=== PATIENT | female | born 1985 | race Caucasian/White ===

== ENCOUNTER 2024-04-04 11:31 | Inpatient (IN) | payer OTHER ==
[2024-04-04] MEDS: morphine CARPU-JECT 4 MG/1 ML DISP.SYRIN IVPUSH ONE (12:35)
[2024-04-04] MEDS: ONDANSETRON 4 MG/2 ML VIAL IVPUSH ONE (12:35)
[2024-04-04 12:41] LABS: BASO % 0.3 % (0-2.0); EOS % 2.6 % (0-4.5); HEMATOCRIT 40.9 % (32.4-45.2); LYMPH % 12.3 % (8-40); MCH 30.1 pg (25.7-33.7); MCHC 34.1 g/dl (32.0-36.0); MEAN CELL VOLUME 88.2 fl (80-96); MEAN PLT VOLUME 7.5 fl (7.5-11.1); MONO % 9.2 % (3.8-10.2); NEUT % 75.6 % (42.8-82.8); PLATELET COUNT 372 10^3/uL (134-434); RBC 4.63 M/mm3 (3.60-5.2); RDW 13.2 % (11.6-15.6); WHITE BLOOD COUNT 18.6 K/mm3 (4.0-10.0)
[2024-04-04] MEDS ORDERED: ONDANSETRON 4 MG/2 ML VIAL ONE (12:45)
[2024-04-04] MEDS ORDERED: morphine SULFATE 4 MG/ML VIAL ONE (12:45)
[2024-04-04 12:48] LABS: INR 1.15 (0.83-1.09); PROTHROMBIN TIME (PATIENT) 13.2 SEC (9.7-13.0)
[2024-04-04 12:49] LABS: POTASSIUM 4.4 mmol/L (3.5-5.1)
[2024-04-04 12:49] LABS: EPI CELLS >36 /uL (0-25.1); HCG,QUALITATIVE URINE Negative; HYALINE CASTS 4 /uL (0-3.1); PH,URINE 5.5 (5.0-8.0); URINE APPEARANCE TURBID; URINE BACTERIA 1863 /uL (0-1359); URINE BILIRUBIN 2+ (NEGATIVE); URINE COLOR RED; URINE GLUCOSE (UA) NEGATIVE (NEGATIVE); URINE KETONE 3+ (NEGATIVE); URINE LEUK ESTERASE 2+ (NEGATIVE); URINE NITRITE POSITIVE (NEGATIVE); URINE PROTEIN 3+ (NEGATIVE); URINE RBC 9643 /uL (0-23.9); URINE WBC 443 /uL (0-25.8)
[2024-04-04 12:51] LABS: CALCIUM 9.4 mg/dL (8.5-10.1)
[2024-04-04 12:55] LABS: CREATININE 0.5 mg/dL (0.55-1.3)
[2024-04-04] MEDS: CEFTRIAXONE 1,000 MG in DEXTROSE 5%-WATER - 50 ML IVPB ONE (12:55)
[2024-04-04 12:56] LABS: BILIRUBIN,TOTAL 0.7 mg/dL (0.2-1); TOT PROT 7.9 g/dl (6.4-8.2)
[2024-04-04] MEDS ORDERED: CEFTRIAXONE 1 GM/50 ML BAG ONE (13:09)
[2024-04-04] MEDS ORDERED: ACETAMINOPHEN INJECTION 100 ML ONE (14:10)
[2024-04-04] MEDS: ACETAMINOPHEN 1000 MG/100 ML BAG IVPB ONE (14:17)
[2024-04-04] MEDS ORDERED: fentaNYL CITRATE 250 MCG/5 ML VIAL ONE (16:25)
[2024-04-04] MEDS: fentaNYL CITRATE 250 MCG/5 ML VIAL IVPUSH ONE (16:28)
[2024-04-04] MEDS: SODIUM CHLORIDE 0.9% 500 ML INFUS.BAG IV ONE (16:35)
[2024-04-04] MEDS ORDERED: MORPHINE SULFATE 2 MG/ML SYRINGE IVPUSH PRN (21:06)
[2024-04-05 00:52] VITALS: BMI 27.1
[2024-04-05] MEDS: LACTATED RINGERS SOLUTION 1000 ML INFUS.BAG IV ONE (01:51)
[2024-04-05] MEDS: LACTATED RINGERS SOLUTION 1,000 ML/1,000 ML INFUS.BAG IV SCH ×2 (01:52→19:23)
[2024-04-05] MEDS: AMPICILLIN NA/SULBACTAM NA 1.5 GM in SODIUM CHLORIDE 100 ML IVPB SCH (02:38)
[2024-04-05 08:24] LABS: HEMOGLOBIN 12.7 GM/dL (10.7-15.3); MCH 30.1 pg (25.7-33.7); MCHC 34.4 g/dl (32.0-36.0); MEAN CELL VOLUME 87.5 fl (80-96); MEAN PLT VOLUME 7.8 fl (7.5-11.1); PLATELET COUNT 380 10^3/uL (134-434); RBC 4.23 M/mm3 (3.60-5.2); RDW 13.2 % (11.6-15.6); WHITE BLOOD COUNT 15.3 K/mm3 (4.0-10.0)
[2024-04-05] MEDS: AMPICILLIN NA/SULBACTAM NA 3 GM in SODIUM CHLORIDE 100 ML IVPB SCH ×2 (08:27→20:47)
[2024-04-05 09:05] LABS: CALCIUM 8.8 mg/dL (8.5-10.1)
[2024-04-05 09:06] LABS: ALBUMIN 2.6 g/dl (3.4-5.0); BLOOD UREA NITROGEN 5.5 mg/dL (7-18); MAGNESIUM 2.1 mg/dL (1.8-2.4)
[2024-04-05 09:08] LABS: CREATININE 0.4 mg/dL (0.55-1.3)
[2024-04-05 09:09] LABS: PHOSPHOROUS 3.2 mg/dL (2.5-4.9)
[2024-04-05 09:10] LABS: BILIRUBIN,TOTAL 0.6 mg/dL (0.2-1); TOT PROT 6.6 g/dl (6.4-8.2)
[2024-04-05] MEDS ORDERED: BUPIVACAINE HCL/PF 0.25% (2.5MG/ML) 10 ML VIAL ONE (14:45)
[2024-04-05] MEDS ORDERED: MIDAZOLAM HCL 2 MG/2 ML SINGLE DOSE VIAL ONE (15:35)
[2024-04-05] MEDS ORDERED: cefOXitin SODIUM 2 GM VIAL (RESTRICTED TO ID) IVPB ONE (15:42)
[2024-04-05] MEDS ORDERED: HEPARIN NA (PORCINE) 5,000 UNITS/ML 1ML VIAL ONE (15:43)
[2024-04-05] MEDS ORDERED: INDOCYANINE GREEN 25 MG/10 ML VIAL IVPUSH ONE (15:49)
[2024-04-05] MEDS: cefOXitin SODIUM 2 GM VIAL (RESTRICTED TO ID) IVPB ONE (15:52)
[2024-04-05] MEDS: BUPIVACAINE HCL/PF 0.5% (5 MG/ML) 30 ML VIAL IJ ONE (15:59)
[2024-04-05] MEDS ORDERED: LIDOCAINE HCL/PF 2% SDV 5ML VIAL ONE (16:14)
[2024-04-05] MEDS ORDERED: PROPOFOL 20 ML ONE (16:14)
[2024-04-05] MEDS ORDERED: ONDANSETRON 4 MG/2 ML VIAL ONE (17:00)
[2024-04-05] MEDS ORDERED: DEXAMETHASONE SOD PHOSPHATE 4 MG/1 ML VIAL ONE (17:00)
[2024-04-05] MEDS ORDERED: SUGAMMADEX SODIUM 200 MG/2 ML VIAL ONE (17:07)
[2024-04-05] MEDS ORDERED: ONDANSETRON 4 MG/2 ML VIAL IVPUSH PRN (17:21)
[2024-04-05] MEDS ORDERED: LACTATED RINGERS SOLUTION 1,000 ML IV SCH (17:30)
[2024-04-05] MEDS ORDERED: ACETAMINOPHEN INJECTION 100 ML ONE (17:43)
[2024-04-05] MEDS: ACETAMINOPHEN 1000 MG/100 ML BAG IVPB PRN (17:46)
[2024-04-05] MEDS: oxyCODONE HCL 5 MG TABLET PO PRN (20:46)
[2024-04-05] MEDS: ACETAMINOPHEN 1000 MG/100 ML BAG IVPB SCH (22:14)
[2024-04-05] MEDS: DOCUSATE SODIUM 100 MG CAPSULE (FP) PO SCH (22:14)
[2024-04-06] MEDS: oxyCODONE HCL 5 MG TABLET PO PRN (00:45)
[2024-04-06] MEDS: ONDANSETRON 4 MG/2 ML VIAL IVPUSH PRN (08:12)
[2024-04-06 08:34] LABS: BASO % 0.1 % (0-2.0); MCH 30.2 pg (25.7-33.7); MCHC 34.2 g/dl (32.0-36.0); MEAN CELL VOLUME 88.3 fl (80-96); MEAN PLT VOLUME 7.8 fl (7.5-11.1); MONO % 4.2 % (3.8-10.2); NEUT % 88.7 % (42.8-82.8); PLATELET COUNT 426 10^3/uL (134-434); RBC 4.31 M/mm3 (3.60-5.2); RDW 13.2 % (11.6-15.6); WHITE BLOOD COUNT 13.3 K/mm3 (4.0-10.0)
[2024-04-06 09:11] LABS: POTASSIUM 4.5 mmol/L (3.5-5.1)
[2024-04-06 09:14] LABS: CALCIUM 9.4 mg/dL (8.5-10.1)
[2024-04-06 09:15] LABS: ALBUMIN 2.6 g/dl (3.4-5.0); BLOOD UREA NITROGEN 5.1 mg/dL (7-18)
[2024-04-06 09:18] LABS: CREATININE 0.4 mg/dL (0.55-1.3)
[2024-04-06 09:19] LABS: BILIRUBIN,TOTAL 0.5 mg/dL (0.2-1)
[2024-04-06 09:20] LABS: TOT PROT 6.8 g/dl (6.4-8.2)
[2024-04-06] MEDS: ERTAPENEM SODIUM 1 GM in SODIUM CHLORIDE 50 ML IVPB SCH (10:59)
[2024-04-07 09:33] LABS: BASO % 0.4 % (0-2.0); EOS % 3.4 % (0-4.5); HEMATOCRIT 36.9 % (32.4-45.2); HEMOGLOBIN 12.8 GM/dL (10.7-15.3); LYMPH % 17.8 % (8-40); MCHC 34.6 g/dl (32.0-36.0); MEAN CELL VOLUME 86.8 fl (80-96); MEAN PLT VOLUME 7.1 fl (7.5-11.1); NEUT % 68.4 % (42.8-82.8); PLATELET COUNT 443 10^3/uL (134-434); RBC 4.25 M/mm3 (3.60-5.2); RDW 12.8 % (11.6-15.6); WHITE BLOOD COUNT 11.1 K/mm3 (4.0-10.0)
[2024-04-07 09:56] LABS: POTASSIUM 3.7 mmol/L (3.5-5.1)
[2024-04-07 10:00] LABS: ALBUMIN 2.6 g/dl (3.4-5.0); CALCIUM 8.7 mg/dL (8.5-10.1)
[2024-04-07 10:01] LABS: BLOOD UREA NITROGEN 4.8 mg/dL (7-18); MAGNESIUM 1.8 mg/dL (1.8-2.4)
[2024-04-07 10:04] LABS: CREATININE 0.4 mg/dL (0.55-1.3)
[2024-04-07 10:05] LABS: BILIRUBIN,TOTAL 0.5 mg/dL (0.2-1)
[2024-04-07 10:06] LABS: TOT PROT 6.6 g/dl (6.4-8.2)
[2024-04-07 13:46] VITALS: BP 111/71; PULSE 91; RESP 20; TEMP 98.4
== END 2024-04-07 16:23 | disposition home or self-care (01) | DRG 263 ==
LOC: JER 11:31 → JERBED 18:15 → UNDOADMOB 18:15 → JERBED 21:49 → J7W 21:49 → JASUSAT 04-05 09:25 → SUATTDRO 04-05 09:25 → J7W 04-05 09:38
PROVIDERS: ADMIT Internal Medicine Infectious Disease
PROC: 0FT44ZZ Resection of Gallbladder, Percutaneous Endoscopic Approach (ICD-10-PCS; principal; 2024-04-06)
PROC: 0DNU3ZZ Release Omentum, Percutaneous Approach (ICD-10-PCS; 2024-04-06)
PROC: 8E0W4CZ Robotic Assisted Procedure of Trunk Region, Percutaneous Endoscopic Approach (ICD-10-PCS; 2024-04-06)
DX: K80.00 Calculus of gallbladder with acute cholecystitis without obstruction (principal); K83.8 Other specified diseases of biliary tract; N39.0 Urinary tract infection, site not specified; J45.909 Unspecified asthma, uncomplicated; K59.00 Constipation, unspecified; K66.0 Peritoneal adhesions (postprocedural) (postinfection); R31.9 Hematuria, unspecified; B96.20 Unspecified Escherichia coli [E. coli] as the cause of diseases classified elsewhere
CPT/HCPCS: 36415; 74177-TC; 76705-TC; 80053; 81003; 82248; 83690; 83735; 84100; 84703; 85025; 85027; 85610; 86850; 86900; 86901; 87086; 87186; 88304-TC; 93005; 93010; 94760; 99285-25; J0131; J1644